=== PATIENT | female | born 1955 | race Caucasian/White ===

== ENCOUNTER 2016-12-06 23:45 | Emergency (ER) | payer OTHER, BC ==
[~2016-12-06 23:45] MED LIST: ALLERGY MEDICAT25 M1; AMITRYPTYLINE PO; EVISTA60 MG PO; FLONASE 0.05% N16 G1; HYDROCODON-ACE1 EAC1 PO; HYDROCODONE-APA1 T30 PO; LISINOPRIL PO; LISINOPRIL10 MG PO; LORTAB; LORTAB 7.5-5001 TAB PO; MEDROL PO; MULTI-VITAMIN1 TAB PO; NABUMETONE PO; NEXIUM PO; OCEAN45 ML; OMEPRAZOLE20 M2 PO; PRILOSEC PO; PROTONIX PO; TYLENOL325 M1 PO; TYLOX 5/500 CAP1 CAP PO; ZITHROMAX PO; ZOFRAN PO
== END 2016-12-07 00:04 | disposition home or self-care (01) ==
LOC: SED 23:45
DX: S01.511A Laceration without foreign body of lip, initial encounter (principal); Z88.8 Allergy status to other drugs, medicaments and biological substances; Z79.899 Other long term (current) drug therapy; X58.XXXA Exposure to other specified factors, initial encounter; Y92.009 Unspecified place in unspecified non-institutional (private) residence as the place of occurrence of the external cause
CPT/HCPCS: 12011; 99283